=== PATIENT | female | born 1950 | race Caucasian/White ===

== ENCOUNTER → 2018-03-29 | Day surgery (SDC) | payer MEDICARE ==
[2018-03-25 16:21] LABS: BASOPHILS # (AUTO) 0.1 (0.0-0.1); BASOPHILS % 0.7 % (0.0-1.0); EOSINOPHILS # (AUTO) 0.1 (0.0-0.4); EOSINOPHILS % 1.4 % (0.0-6.0); HEMOGLOBIN 13.4 g/dL (12.0-16.0); LYMPHOCYTES # (AUTO) 2.1 (1.0-3.2); LYMPHOCYTES % 22.9 % (18.0-39.1); MEAN CORPUSCULAR HEMOGLOBIN 31.4 pg (28-32); MEAN CORPUSCULAR HGB CONC 33.5 g/dL (31-35); MEAN CORPUSCULAR VOLUME 93.7 fL (81-99); MONOCYTES # (AUTO) 0.5 (0.2-0.8); MONOCYTES % 5.9 % (4.4-11.3); NEUTROPHILS # (AUTO) 6.2 (2.1-6.9); NEUTROPHILS % 68.7 % (38.7-80.0); PLATELET COUNT 243 x10e3/uL (140-360); RED BLOOD COUNT 4.27 x10e6/uL (3.6-5.1); RED CELL DISTRIBUTION WIDTH 13.3 % (11.7-14.4)
[2018-03-25 16:44] LABS: ANION GAP 13.4 mmol/L (8-16); CALCIUM 9.6 mg/dL (8.4-10.2); CREATININE, SERUM 1.05 mg/dL (0.57-1.11); POTASSIUM 3.4 mmol/L (3.5-5.1)
--- NOTE | 2018-03-25 16:45 | Diagnostic Imaging Report ---
EXAM: CHEST 2 VIEWS, PA and lateral DATE: 03/25/2018 3:53 PM Time stamp on exam: 4:02 PM INDICATION: Preoperative COMPARISON: None FINDINGS: LINES/TUBES: None LUNGS: No consolidations or edema. PLEURA: No effusions or pneumothorax. HEART AND MEDIASTINUM: Normal size and contour. BONES AND SOFT TISSUES: Degenerative changes of the thoracic spine. Mild scoliosis. Cervical plate overlies the lower cervical spine. IMPRESSION: No acute thoracic abnormality. Signed by: Dr. Flash Rubin DO on 03/25/2018 4:42 PM
[~2018-03-29] MED LIST: ABILIFY5 MG PO; ASPIR 8181 MG PO; BUPIVACAINE 0.25% 30ML SDV INJ ONE; BUPIVACAINE 0.25%/EPI 30ML SDV INJ ONE; BUPROPION XL150 MG PO; CALCIUM600 MG PO; CYMBALTA30 MG PO; DEXAMETHASONE SOD PHOS INJ 4 MG/ML VIAL ONE; EPHEDRINE SULFATE INJ 50 MG/10 ML SYR ONE; FENTANYL CITRATE/PF 100MCG/2 ML INJ ONE; GLUCOSAMINE 1,1 EACH PO; LIDOCAINE HCL 1% LOCAL INJ 20 ML VIAL ONE; LIDOCAINE HCL 2% LOCAL INJ 5 ML SDV VIAL INJ ONE; LISINOPRIL-HCT1 EAC1 PO; LISINOPRIL10 MG PO; LISINOPRIL20 MG PO; MIDAZOLAM HCL 2 MG/2 ML VIAL ONE; NEOSTIGMINE 1 MG/ML 10ML VIAL ONE; OMEPRAZOLE40 MG PO; ONDANSETRON HCL INJ 2 MG/ML VIAL ONE; PRISTIQ ER100 MG PO; PROPOFOL IV EMULSION 10 MG/ML 20 ML VIAL ONE; PROPRANOLOL HCL40 MG PO; QUETIAPINE FUMA25 MG PO; SERTRALINE HCL50 MG PO; SEVOFLURANE INHAL SOLN 250 ML PEN BTL ONE; VASOPRESSIN INJ 20 UNIT/ML VIAL ONE; VITAMIN B-122500 MCG PO
[2018-03-29 11:35] VITALS: BP 114/67
--- NOTE | 2018-03-29 13:55 | Operative Report ---
DATE OF PROCEDURE: March 29, 2018 PREOPERATIVE DIAGNOSIS: Mass of the frontal scalp. POSTOPERATIVE DIAGNOSIS: Mass of the frontal scalp. OPERATION PERFORMED: Resection of mass of the frontal scalp. ANESTHESIA: General. COMPLICATIONS: None. ESTIMATED BLOOD LOSS: Minimal. DESCRIPTION OF PROCEDURE: With the patient lying in bed in the supine position under good general anesthesia, the scalp was prepped with Hibiclens solution and draped in the usual manner. The area over the frontal mid scalp was then infiltrated with 1/4 percent Marcaine with epinephrine. An elliptical incision was made to include the skin overlying the mass of the frontal scalp. It was carried down into the subcutaneous tissue, and the mass was totally and completely removed down to the galea without violating any of the borders. The mass was then sent for pathological examination. Hemostasis was then ascertained, and the wound was then closed with interrupted vertical mattress sutures of 2-0 Prolene. Neosporin was applied. Sponge, lap and needle count was correct. The patient tolerated the procedure well and returned to the recovery room in stable condition. Job#: [id number]
== END | disposition home or self-care (01) ==
LOC: OR 07:41
PROVIDERS: ATTEND Surgery
DX: L72.11 Pilar cyst (principal); G47.33 Obstructive sleep apnea (adult) (pediatric); I10 Essential (primary) hypertension; Z88.0 Allergy status to penicillin; Z01.810 Encounter for preprocedural cardiovascular examination; Z01.812 Encounter for preprocedural laboratory examination; Z01.818 Encounter for other preprocedural examination; Z79.82 Long term (current) use of aspirin
CPT/HCPCS: 11422; 36415; 71046; 80048; 85025; 88304; 93005; J1100; J2001; J2250; J2405; J2704; J2710

== ENCOUNTER → 2022-01-02 | Outpatient (CLI) | payer MEDICARE ==
[~2022-01-02] MED LIST changes: -BUPIVACAINE 0.25% 30ML SDV INJ ONE; -BUPIVACAINE 0.25%/EPI 30ML SDV INJ ONE; -DEXAMETHASONE SOD PHOS INJ 4 MG/ML VIAL ONE; -EPHEDRINE SULFATE INJ 50 MG/10 ML SYR ONE; -FENTANYL CITRATE/PF 100MCG/2 ML INJ ONE; -LIDOCAINE HCL 1% LOCAL INJ 20 ML VIAL ONE; -LIDOCAINE HCL 2% LOCAL INJ 5 ML SDV VIAL INJ ONE; -MIDAZOLAM HCL 2 MG/2 ML VIAL ONE; -NEOSTIGMINE 1 MG/ML 10ML VIAL ONE; -ONDANSETRON HCL INJ 2 MG/ML VIAL ONE; -PROPOFOL IV EMULSION 10 MG/ML 20 ML VIAL ONE; -SEVOFLURANE INHAL SOLN 250 ML PEN BTL ONE; -VASOPRESSIN INJ 20 UNIT/ML VIAL ONE
== END ==
LOC: MRI 08:25
PROVIDERS: ATTEND Family Medicine
DX: M47.816 Spondylosis without myelopathy or radiculopathy, lumbar region (principal)
CPT/HCPCS: 72148

== ENCOUNTER → 2022-07-06 | Outpatient (CLI) | payer MEDICARE | LOC: RAD 13:38 | PROVIDERS: ATTEND Pain Medicine Pain Medicine | DX: M16.12 Unilateral primary osteoarthritis, left hip (principal) ==